=== PATIENT | female | born 1955 | race Caucasian/White ===

== ENCOUNTER 2020-01-06 16:32 | Emergency (ER) | payer OTHER ==
[2020-01-06 16:57] VITALS: TEMP 98.7; BMI 26.4
--- NOTE | 2020-01-06 17:21 | PDOC ---
History of Present Illness - General Chief Complaint: Blood Pressure Problem Stated Complaint: Blood Pressure Problem Time Seen by Provider: 01/06/20 17:21 - History of Present Illness Initial Comments: 64 YOF h/o htn presents with headache after high blood pressure reading. Patient reports that she was home today, felt lightheaded with a headache. She reports she took one of her bp meds this AM but not both. Upon feeling light headed, she measured her bp which was in the 190s/80s. Upon seeing these pressures she took a second dose of one of her bp meds, and a first dose of the other (she takes losartan and hctz but is unsure of which she took). She describes her headache as 1/10 and constant. She reports she does not often have headaches. She denies CP, SOB, blurry vision, change in urination, N/V/D, fever, chills, recent sick contacts. Constitutional: No Weight Change, No Fever, No Chills, No Night Sweats, No F atigue, No Malaise ENT/Mouth: No Hearing Changes, No Ear Pain, No Nasal Congestion, No Sinus Pain, No Hoarseness, No sore throat, No Rhinorrhea, No Swallowing Difficulty Eyes: No Eye Pain, No Swelling, No Redness, No Foreign Body, No Discharge, No Vision Changes Cardiovascular: No Chest Pain, No SOB, No PND, No Dyspnea on Exertion, No Orthopnea, No Claudication, No Edema, No Palpitations Respiratory: No Cough, No Sputum, No Wheezing, No Smoke Exposure, No Dyspnea Gastrointestinal: No Nausea, No Vomiting, No Diarrhea, No Constipation, No Pain, No Heartburn, No Anorexia, No Dysphagia, No Hematochezia, No Melena, No Flatulence, No Jaundice Genitourinary: No Dysmenorrhea, No DUB, No Dyspareunia, No Dysuria, No Urinary Frequency, No Hematuria, No Urinary Incontinence, No Urgency, No Flank Pain, No Urinary Flow Changes, No Hesitancy Musculoskeletal: No Arthralgias, No Myalgias, No Joint Swelling, No Joint Stiffness, No Back Pain, No Neck Pain, No Injury History Skin: No Skin Lesions, No Pruritis, No Hair Changes, No Breast/Skin Changes, No Nipple Discharge Neuro: No Weakness, No Numbness, No Paresthesias, No Loss of Consciousness, No Syncope, No Dizziness, + Headache, No Coordination Changes, No Recent Falls Psych: No Anxiety/Panic, No Depression, No Insomnia, No Personality Changes, No Delusions, No Rumination, No SI/HI/AH/VH, No Social Issues, No Memory Changes, No Violence/Abuse Hx., No Eating Concerns Heme/Lymph: No Bruising, No Bleeding, No Transfusions History, No Lymphadenopathy Endocrine: No Polyuria, No Polydipsia, No Temperature Intolerance Past History - Medical History Allergies/Adverse Reactions: Allergies Allergy/AdvReac Type Severity Reaction Status Date / Time No Known Allergies Allergy Verified 01/06/20 16:57 Home Medications: Ambulatory Orders Losartan Potassium 100 mg PO DAILY 01/06/20 Rosuvastatin Calcium 10 mg PO DAILY 01/06/20 Triamterene/Hydrochlorothiazid [Triamterene-Hctz 37.5-25 mg Tb] 1 each PO DAILY 01/06/20 COPD: No HTN: Yes Hypercholesterolemia: Yes - Reproductive History Is Patient Now?: No - Psycho-Social/Smoking History Smoking History: Never smoked Have you smoked in the past 12 months: No Information on smoking cessation initiated: No - Substance Abuse Hx (Audit-C & DAST Scrn) How often the patient has a drink containing alcohol: Never Score: In Men: 4 or > Positive; In Women: 3 or > Positive: 0 Screen Result (Pos requires Nsg. Audit-10AR): Negative In the last yr the pt used illegal drug/Rx for NonMed reason: No Score: Yes response is considered Positive: 0 Screen Result (Positive result requires Nsg. DAST-10): Negative *Physical Exam - Vital Signs Last Vital Signs Temp Pulse Resp BP Pulse Ox 98.7 F 70 18 169/76 100 01/06/20 16:54 01/06/20 16:54 01/06/20 16:54 01/06/20 16:54 01/06/20 16:54 - Physical Exam General Appearance: Yes: Nourished, Appropriately Dressed HEENT: positive: EOMI, RUBY, Normal ENT Inspection Neck: positive: Trachea midline, Normal Thyroid Respiratory/Chest: positive: Lungs Clear, Normal Breath Sounds Cardiovascular: positive: Regular Rhythm, Regular Rate, S1, S2 Musculoskeletal: positive: Normal Inspection, CVA Tenderness Integumentary: positive: Normal Color, Dry, Warm Neurologic: positive: hand profiler II-XII NML intact, Fully Oriented, Alert, Normal Mood/Affect, Normal Response, Motor Strength 08/24 ED Treatment Course - LABORATORY CBC & Chemistry Diagram: 01/06/20 18:00 01/06/20 18:00 Medical Decision Making - Medical Decision Making 64 YOF with high blood pressure reading and 05/01 headache - BP 169/76 on arrival - will do EKG, CXR, CBC, CMP, troponins 01/06/20 19:56 -EKG labs and imaging wnl -will DC patient with instructions to f/u with primary care Discharge - Discharge Information Problems reviewed: Yes Clinical Impression/Diagnosis: High blood pressure Condition: Good Disposition: HOME - Admission No - Follow up/Referral Referrals: Jeremy Clemons MD [Primary Care Provider] - - Patient Discharge Instructions Patient Printed Discharge Instructions: DI for High Blood Pressure, How to Monitor Your Blood Pressure at Home Additional Instructions: You were seen in the Emergency Department for high blood pressure and a headache. You received labs and imagining both of which were normal. You were considered medically stable and safe to return home. Please return to the [facility] if you experience the following: worsening of your headache, chest pain, shortness of breath, vomiting, decreased urinary output, blood in your urine, dizziness, fever, or chills. Please follow up with your primary care doctor regarding your stay here. - Post Discharge Activity
[2020-01-06 17:41] VITALS: BP 149/64; PULSE 65
[2020-01-06] MEDS ORDERED: ACETAMINOPHEN 325 MG TABLET (FP) PO ONE (18:03)
[2020-01-06] MEDS ORDERED: ACETAMINOPHEN 325 MG TABLET (FP) ONE (18:38)
[2020-01-06 18:43] LABS: BASO % 1.1 % (0-2.0); EOS % 1.6 % (0-4.5); HEMOGLOBIN 14.2 GM/dL (10.7-15.3); LYMPH % 17.3 % (8-40); MCH 31.2 pg (25.7-33.7); MCHC 33.8 g/dl (32.0-36.0); MEAN CELL VOLUME 92.3 fl (80-96); MEAN PLT VOLUME 8.4 fl (7.5-11.1); MONO % 6.1 % (3.8-10.2); NEUT % 73.9 % (42.8-82.8); PLATELET COUNT 241 K/MM3 (134-434); RBC 4.55 M/mm3 (3.60-5.2); RDW 12.2 % (11.6-15.6); WHITE BLOOD COUNT 8.6 K/mm3 (4.0-10.0)
--- NOTE | 2020-01-06 18:57 | PDOC ---
Documentation entered by Anastasiia Lowry SCRIBE, acting as scribe for Naun Escobar MD. Naun Escobar MD: This documentation has been prepared by the jesseibAlen moreau Ana, SCRIBE, under my direction and personally reviewed by me in its entirety. I confirm that the documentation accurately reflects all work, treatment, procedures, and medical decision making performed by me. Attending Attestation - Resident Resident Name: VielkaRene - ED Attending Attestation I have performed the following: I have examined & evaluated the patient, The case was reviewed & discussed with the resident, I agree w/resident's findings & plan, Exceptions are as noted - HPI HPI: 01/06/20 17:26 64 F with h/o HTN presents to ED with elevated BP. Pt states she felt lightheaded at home today and checked her BP. Found it to be 190s/80s. Pt is on 2 BP meds, which she has been compliant with. Pt took an extra dose of her HCTZ at this time. Pt also took her scheduled losartan. Pt denies any CP/SOB. Denies leg swelling. Endorses mild headache that was gradual onset, 1/10 in severity. Denies N/V. Denies neck pain. Allergies: NKDA - Physicial Exam PE: 01/06/20 17:26 See resident exam. - Medical Decision Making 01/06/20 18:59 64 F with lightheadedness and elevated BP. Also mild headache but neurologically intact. EKG unremarkable. - Labs Pt signed out to Dr. bullock at 7PM, pending labs and re-evaluation Discharge - Discharge Information Problems reviewed: Yes Clinical Impression/Diagnosis: High blood pressure Condition: Good Disposition: HOME - Follow up/Referral Referrals: Jeremy Clemons MD [Primary Care Provider] - - Patient Discharge Instructions Patient Printed Discharge Instructions: DI for High Blood Pressure, How to Monitor Your Blood Pressure at Home Additional Instructions: You were seen in the Emergency Department for high blood pressure and a headache. You received labs and imagining both of which were normal. You were considered medically stable and safe to return home. Please return to the hospital if you experience the following: worsening of your headache, chest pain, shortness of breath, vomiting, decreased urinary output, blood in your urine, dizziness, fever, or chills. Please follow up with your primary care doctor regarding your stay here. - Post Discharge Activity
[2020-01-06 19:22] LABS: ALBUMIN 4.1 g/dl (3.4-5.0); ANION GAP 7 MMOL/L (8-16); BILIRUBIN,TOTAL 0.7 mg/dL (0.2-1); BLOOD UREA NITROGEN 12.6 mg/dL (7-18); CALCIUM 9.9 mg/dL (8.5-10.1); CHLORIDE 103 mmol/L (98-107); CO2 28 mmol/L (21-32); CREATININE 0.8 mg/dL (0.55-1.3); GLUCOSE,RANDOM 98 mg/dL (74-106); SGOT/AST 49 U/L (15-37); SODIUM 138 mmol/L (136-145)
[2020-01-06 19:25] LABS: ALK PHOS 100 U/L (45-117); SGPT/ALT 71 U/L (13-61); TOT PROT 7.8 g/dl (6.4-8.2)
--- NOTE | 2020-01-07 09:53 | EKG ---
Test Reason : Blood Pressure : / mmHG Vent. Rate : 065 BPM Atrial Rate : 065 BPM P-R Int : 142 ms QRS Dur : 082 ms QT Int : 398 ms P-R-T Axes : 056 022 016 degrees QTc Int : 413 ms NORMAL SINUS RHYTHM SEPTAL INFARCT , AGE UNDETERMINED ABNORMAL ECG NO PREVIOUS ECGS AVAILABLE Confirmed by BG LAURENT, JONAS ([id number]) on 01/07/2020 9:53:25 AM Referred By: Confirmed By:JONAS PEDERSON MD
== END 2020-01-06 20:08 | disposition home or self-care (01) ==
LOC: JER 16:32
DX: R03.0 Elevated blood-pressure reading, without diagnosis of hypertension (principal)
CPT/HCPCS: 36415; 71045-TC-FY; 80053; 84484; 85025; 93005; 93010; 99285-25

== ENCOUNTER 2023-04-29 21:56 | Emergency (ER) | payer OTHER ==
[2023-04-29 22:06] VITALS: BP 174/74; PULSE 77; RESP 20; TEMP 97.9; BMI 25.3
== END 2023-04-29 23:26 | disposition left against medical advice (07) ==
LOC: JER 21:56
DX: I10 Essential (primary) hypertension (principal); R20.2 Paresthesia of skin
CPT/HCPCS: 99281-25

== ENCOUNTER 2024-03-31 13:27 | Emergency (ER) | payer OTHER ==
[2024-03-31 13:41] VITALS: BP 168/74; PULSE 82; RESP 18; TEMP 98.6; BMI 22.1
[2024-03-31 15:05] LABS: EOS % 1.5 % (0-4.5); HEMATOCRIT 46.1 % (32.4-45.2); HEMOGLOBIN 15.5 GM/dL (10.7-15.3); LYMPH % 19.5 % (8-40); MCH 30.3 pg (25.7-33.7); MCHC 33.6 g/dl (32.0-36.0); MEAN CELL VOLUME 90.3 fl (80-96); MEAN PLT VOLUME 8.1 fl (7.5-11.1); MONO % 6.1 % (3.8-10.2); NEUT % 71.9 % (42.8-82.8); PLATELET COUNT 248 10^3/uL (134-434); RDW 12.6 % (11.6-15.6); WHITE BLOOD COUNT 7.2 K/mm3 (4.0-10.0)
[2024-03-31] MEDS: SODIUM CHLORIDE 0.9% 1000 ML INFUS.BAG IV ONE (15:05)
[2024-03-31 16:32] LABS: HIV INTERPRETATION NEGATIVE (NEGATIVE)
[2024-03-31 18:26] LABS: POTASSIUM 4.3 mmol/L (3.5-5.1)
[2024-03-31 18:28] LABS: BLOOD UREA NITROGEN 20.3 mg/dL (7-18); CALCIUM 10.2 mg/dL (8.5-10.1)
[2024-03-31 18:33] LABS: CREATININE 0.8 mg/dL (0.55-1.3)
== END 2024-03-31 20:06 | disposition home or self-care (01) ==
LOC: JER 13:27
DX: R00.2 Palpitations (principal); R10.13 Epigastric pain
CPT/HCPCS: 36415; 80048; 84443; 84484; 85025; 86803; 87389; 93005; 93010; 99284-25